=== PATIENT | male | born 1990 | race American Indian/Alaskan Native ===

== ENCOUNTER 2019-10-30 16:24 | Emergency (ER) | payer OTHER ==
[2019-10-30 16:37] VITALS: BP 189/96
--- NOTE | 2019-10-30 17:00 | Emergency Department Report ---
Chief Complaint: Medical Clearance Stated Complaint: MED REFILL Time Seen by Provider: 10/30/19 16:59 - HPI History of Present Illness: This is a 28-year-old male with a history of psychosis who presents here to the ED wanting a medication refill of his haloperidol 1 mg injection which he takes once a month. Patient states that his last prescriptions were written by urgent care physician. Patient states that he has not been able to follow-up with the psychiatrist or his regular doctor due to him being out of town. Patient states he went to another urgent care to get his medication refilled but the urgent care was closed. Patient denies any psychosis event, depression, suicidal ideation or homicidal ideation hallucination auditory and visual. - ROS Review of Systems: As noted in HPI - Exam Vital Signs: Vital Signs 10/30/19 16:34 Temperature 98.5 F Pulse Rate 84 Respiratory 18 Rate Blood Pressure 189/96 O2 Sat by Pulse 99 Oximetry Physical Exam: GENERAL: Alert and oriented x3, no apparent distress, Normal Gait, atraumatic. HEAD: Head is normocephalic and a-traumatic. PSYCHIATRIC: Mood is congruent with affect, denies suicidal or homicidal ideations. SKIN: Warm and dry, No lesions, No ulceration or induration present. MSE screening note: Focused history and physical exam performed. Due to findings the following was ordered: ED Medical Decision Making - Medical Decision Making 28-year-old male who presented for medication refill. I discussed with the patient that it is advised for him to be evaluated by psychiatrist and have his medication prescribed there. Given patient referrals several psychiatrists in [place]. I discussed with patient that he may follow-up with as soon as tomorrow. Patient states he understands instructions and will follow-up. ED Disposition for MSE Clinical Impression: Medication refill Disposition: Z-07 MED SCREENING EXAM-LEFT Is pt being admited?: No Does the pt Need Aspirin: No Condition: Stable Additional Instructions: Make sure to follow up with the [facility] clinic as well as others have you been referred If you have any worsening symptoms or develop new symptoms please return to ED immediately. Referrals: PRIMARY CARE, [Primary Care Provider] - 3-5 Days [facility] [Outside] - 3-5 Days [facility] [Outside] - 3-5 Days [facility] [Outside] - 3-5 Days [facility] [Outside] - 3-5 Days MATTHEW NIÑO MD [Staff Physician] - 3-5 Days Forms: Work/School Release Form(ED) Time of Disposition: 17:17
== END 2019-10-30 17:40 | disposition left against medical advice (07) ==
LOC: ED 16:24
DX: F23 Brief psychotic disorder (principal); Z76.0 Encounter for issue of repeat prescription
CPT/HCPCS: 99281